=== PATIENT | male | born 1980 | race Caucasian/White ===

== ENCOUNTER 2024-02-09 10:09 | Emergency (ER) | payer MEDICAID, OTHER ==
[~2024-02-09] VITALS: Ht 185.4 cm; Wt 102.2 kg
[2024-02-09 10:30] VITALS: TEMP 98.8
[2024-02-09 10:33] LABS: Basophils # (auto) 0 10 ^3/uL (0-0.2); Basophils % (auto) 0.4 % (0.0-2.0); Eosinophils # (auto) 0 10 ^3/uL (0-0.8); Eosinophils % (auto) 0.2 % (0.0-7.0); Lymphocytes # (auto) 2.1 10 ^3/uL (0.4-5.4); Mean Corpuscular Volume 85.1 fL (80.0-100.0); Monocytes # (auto) 0.7 10 ^3/uL (0-1.3)
[2024-02-09 10:34] LABS: Hematocrit 51.9 % (41.0-53.0); Hemoglobin 17.7 g/dL (13.5-17.5); Lymphocytes % (auto) 34.1 % (10.0-50.0); Monocytes % (auto) 11.2 % (0.0-12.0); Neutrophils # (auto) 3.4 10 ^3/uL (1.6-8.6); Neutrophils % (auto) 54.1 % (37.0-80.0); Nucleated Red Blood Cells % 0.1 %; Platelet Count (auto) 244 10^3/uL (140-450); Red Cell Distribution Width 13.5 % (11.8-14.3); White Blood Cell 6.2 10^3/uL (4.4-10.8)
[2024-02-09] MEDS: ASPirin 81 mg TAB PO ONE (10:39)
[2024-02-09 10:49] LABS: Alanine Aminotransferase 19 U/L (7-40); Alkaline Phosphatase 68 U/L (46-116); Anion Gap 8 (5-15); Aspartate Aminotransferase 18 U/L (13-40); BUN/Creatinine Ratio 9.9 (10.0-20.0); Blood Urea Nitrogen 9 mg/dL (9-23); Calcium 9.9 mg/dL (8.7-10.4); Carbon Dioxide 27 mmol/L (20-31); Chloride 102 mmol/L (98-107); Glucose 176 mg/dL (74-106); Sodium 137 mmol/L (136-145)
[2024-02-09 10:50] LABS: Albumin 4.7 g/dL (3.2-4.8); Bilirubin, Total 0.6 mg/dL (0.2-1.0); Total Protein 7.9 g/dL (5.7-8.2)
[2024-02-09 12:46] VITALS: BP 120/82; PULSE 79; RESP 18; O2SAT 96
== END 2024-02-09 13:14 | disposition home or self-care (01) ==
LOC: ER 10:09
DX: R07.89 Other chest pain (principal); E11.9 Type 2 diabetes mellitus without complications; E78.5 Hyperlipidemia, unspecified
CPT/HCPCS: 36415; 71046; 80053; 84484; 85025; 93005

== ENCOUNTER 2024-02-11 04:55 | Emergency (ER) | payer MEDICAID ==
[~2024-02-11] VITALS: Ht 185.4 cm; Wt 101.5 kg
[2024-02-11] MEDS ORDERED: AMOX875T4 PO (05:41)
[2024-02-11] MEDS ORDERED: IBUP-1456 PO (05:41)
[2024-02-11] MEDS: cefTRIAXone SOD 1,000 MG VL IM ONE (05:46)
[2024-02-11] MEDS: KETOROLAC TROMETH 60MG/2ML VIAL IM ONE (05:47)
[2024-02-11 06:04] VITALS: BP 132/85; PULSE 99; RESP 20; TEMP 97; O2SAT 96
== END 2024-02-11 05:50 | disposition home or self-care (01) ==
LOC: ER 04:55
DX: H66.92 Otitis media, unspecified, left ear (principal); J06.9 Acute upper respiratory infection, unspecified; E11.9 Type 2 diabetes mellitus without complications
CPT/HCPCS: 96372; 99284; J0696; J1885

== ENCOUNTER 2024-02-13 21:46 | Emergency (ER) | payer MEDICAID ==
[~2024-02-13 21:46] MED LIST: AMOX875T4 PO; IBUP-1456 PO
[2024-02-13 22:13] VITALS: BP 109/70; PULSE 99; RESP 20; TEMP 98.1; O2SAT 98
[2024-02-13] MEDS: CIPROFLOXACIN HCL 500 MG TAB PO ONE ×2 (22:30→23:44)
[2024-02-13] MEDS: HYDROcodone-ACET 5/325MG TAB PO ONE (23:44)
[2024-02-13] MEDS ORDERED: CIPR-173 PO (23:57)
== END 2024-02-14 | disposition home or self-care (01) ==
LOC: ER 21:46
DX: H66.92 Otitis media, unspecified, left ear (principal); E11.9 Type 2 diabetes mellitus without complications; E78.5 Hyperlipidemia, unspecified; Z79.899 Other long term (current) drug therapy

== ENCOUNTER 2024-09-27 05:06 | Emergency (ER) | payer MEDICAID ==
[~2024-09-27] VITALS: Ht 188 cm; Wt 104.4 kg
[~2024-09-27 05:06] MED LIST changes: +CIPR-173 PO
--- NOTE | 2024-09-27 05:29 | ED.PDOC ---
Back pain HPI HPI Comments 44-year-old male presents to the ED with C/C of left hand injury s/p crushing left hand in car door. Noted subungual hematoma to middle and ring fingernail. Pt stated injury is just to mid-knuckle and fingertips. No edema or erythema noted. VSS. NKDA Chief Complaint: Upper Extremity Time Seen by MD: 05:13 Primary Care Provider: UNKNOWN Reviewed Notes: Nurses Notes, Medications, Allergies Allergies: Coded Allergies: NO KNOWN ALLERGIES (Unverified , 02/09/24) Home Meds Active Scripts Ciprofloxacin Hcl (Cipro) 500 Mg Tab, 500 MG PO BID for 7 Days, #14 TAB 0 Refill s Prov:MIHCELLE DUMONT MD 02/13/24 Ibuprofen (Ibuprofen) 800 Mg Tab, 1 TAB PO TID PRN, #30 TAB 0 Refills Prov:FRANKY SIN 02/11/24 Amoxicillin & Pot Clavulanate (Amoxicillin/Potassium Cla) 875 Mg Tab, 1 TAB PO BID for 7 Days, #14 TAB 0 Refills Prov:FRANKY SIN 02/11/24 Information Source: Patient Past Medical History PAST MEDICAL HISTORY: DM, High Lipids Surgical History: Denies all surgeries Family History Family History: Family hx of DM Social History Smoker: Non-Smoker Alcohol: Denies ETOH Use Drugs: Denies Drug Use Lives In: Home Constitutional: denies: chills, diaphoresis, fatigue, fever, malaise, sweats, weakness, others EENTM: denies: blurred vision, double vision, ear bleeding, ear discharge, ear drainage, ear pain, ear ringing, eye pain, eye redness, hearing loss, mouth pain, mouth swelling, nasal discharge, nose bleeding, nose congestion, nose pain, photophobia, tearing, throat pain, throat swelling, voice changes, others Respiratory: denies: cough, hemoptysis, orthopnea, SOB at rest, shortness of breath, SOB with excertion, stridor, wheezing, others Cardiovascular: denies: chest pain, dizzy spells, diaphoresis, Dyspnea on exertion, edema, irregular heart beat, left arm pain, lightheadedness, palpitations, PND, syncope, others Gastrointestinal: denies: abdomen distended, abdominal pain, blood streaked bowels, constipated, diarrhea, dysphagia, difficulty swallowing, hematemesis, melena, nausea, poor appetite, poor fluid intake, rectal bleeding, rectal pain, vomiting, others Genitourinary: denies: burning, dysuria, flank pain, frequency, hematuria, incontinence, penile discharge, penile sore, pain, testicle pain, testicle swelling, urgency, others Neurological: denies: dizziness, fainting, headache, left sided numbness, left sided weakness, numbness, paresthesia, pre-existing deficit, right sided numbness, right sided weakness, seizure, speech problems, tingling, tremors, weakness, others Musculoskeletal: denies: back pain, gout, joint pain, joint swelling, muscle pain, muscle stiffness, neck pain, others Integumetry: reports: bruises; denies: change in color, change in hair/nails, dryness, laceration, lesions, lumps, rash, wounds, others Allergic/Immunocompromised: denies: Difficulty Healing, Frequent Infections, Hives, Itching, others Hematologic/Lymphatic: denies: anemia, blood clots, easy bleeding, easy bruising, swollen glands, others Endocrine: denies: excessive hunger, excessive sweating, excessive thirst, excessive urination, flushing, intolerance to cold, intolerance to heat, unexplained weight gain, unexplained weight loss, others Psychiatric: denies: anxiety, bipolar disorder, depression, hopeless, panic disorder, schizophrenia, sleepless, suicidal, others Physical Exam General Appearance: No Apparent Distress, Normal HEENT: Pharynx Normal Neck: Full Range of Motion, Non-Tender Respiratory: Lungs Clear, No Respiratory Distress, Normal Breath Sounds Cardiovascular: No Murmur, Normal Peripheral Pulses, Regular Rate/Rhythm Breast Exam: Deferred Gastrointestinal: Non Tender, Soft Genitalia: Deferred Pelvic: Deferred Rectal: Deferred Extremities: Normal capillary refill, Normal inspection, Normal range of motion, Non-tender Musculoskeletal : Location: Left Extremity Location: Finger 3 (NOTED ECCHYMOSIS ON NAILBED TRACE EDEMA STRENGTH SENSORY MOTION INTACT CAP REFILL LESS THAN 3 SECONDS), Finger 4 (NOTED ECCHYMOSIS ON NAILBED TRACE EDEMA STRENGTH SENSORY MOTION INTACT CAP REFILL LESS THAN 3 SECONDS) Apperance: Normal Neurologic: Alert, call center nurse II-XII nml as Tested, No Motor Deficits, Normal Affect, Normal Mood, No Sensory Deficits Cerebellar Function: Normal Reflexes: Normal Skin: Dry, Normal Color, Warm Lymphatic: No Adenopathy Was a procedure done? Was a procedure done?: No Back Pain Differential Dx Differential Diagnosis: Fracture, Musculoskeletal Pain X-Ray, Labs, Meds, VS Vital Signs Date Time Temp Pulse Resp B/P (MAP) Pulse Ox O2 Delivery O2 Flow Rate FiO2 09/27/24 05:06 98.0 83 16 143/89 (107) 97 98.0 Time of 1ST Reevaluation: 05:26 Reevaluation 1ST: Unchanged Patient Education/Counseling: Diagnosis, Treatment, Prognosis, Need For Follow Up Family Education/Counseling: No Family Present Departure 1 Departure Time of Disposition: 05:57 Impression: Primary Impression: Fingertip contusion Qualified Codes: S60.00XA - Contusion of unspecified finger without damage to nail, initial encounter Disposition: HOME / SELF CARE / HOMELESS Condition: Stable Discharged With: Self Critical Care Note Critical Care Time?: No Stability Stability form required: DIAZ Culp Sep 27, 2024 05:29
--- NOTE | 2024-09-27 05:53 | DVH ---
CLINICAL INDICATION: Crushed hand injury TECHNIQUE: XY L HAND 2V XRAY Comparison: None FINDINGS/IMPRESSION: : There is no evidence of acute fracture or dislocation. Soft tissues are unremarkable.
[2024-09-27] MEDS: KETOROLAC TROMETH 60MG/2ML VIAL IM ONE (06:18)
[2024-09-27 06:23] VITALS: BP 131/86; RESP 19; TEMP 98
[2024-09-27 06:26] VITALS: PULSE 69; O2SAT 96
== END 2024-09-27 06:32 | disposition home or self-care (01) ==
LOC: ER 05:06
DX: S60.132A Contusion of left middle finger with damage to nail, initial encounter (principal); S60.142A Contusion of left ring finger with damage to nail, initial encounter; E11.9 Type 2 diabetes mellitus without complications; E78.5 Hyperlipidemia, unspecified; W23.0XXA Caught, crushed, jammed, or pinched between moving objects, initial encounter; Y93.89 Activity, other specified; Y92.89 Other specified places as the place of occurrence of the external cause; Y99.8 Other external cause status
CPT/HCPCS: 73120; 96372; 99283; J1885

== ENCOUNTER 2024-12-30 16:34 | Inpatient (IN) | payer MEDICAID ==
[~2024-12-30] VITALS: Ht 185.4 cm; Wt 105.2 kg
--- NOTE | 2024-12-30 19:16 | ED.PDOC ---
GI ASSESSMENT HPI Comments 44-year-old male presents to ER with complaints of flank pain x1 day. Patient reports that he woke up with 10/10 left-sided flank pain this morning. States he has had similar symptoms in the past related to a left-sided kidney stone. Reports he did take Advil for his pain without relief and presents to ER am bulatory on arrival, with steady gait, in no distress. Denies fever, body aches, chills, nausea/vomiting, abdominal/pelvic pain, changes in urination or any further symptoms/complaints Chief Complaint: Flank Pain Time Seen by MD: 18:14 Primary Care Provider: UNKNOWN Reviewed Notes: Nurses Notes, Medications, Allergies Allergies: Coded Allergies: NO KNOWN ALLERGIES (Unverified , 02/09/24) Home Meds Active Scripts Ciprofloxacin Hcl (Cipro) 500 Mg Tab, 500 MG PO BID for 7 Days, #14 TAB 0 Refills Prov:MICHELLE DUMONT MD 02/13/24 Ibuprofen (Ibuprofen) 800 Mg Tab, 1 TAB PO TID PRN, #30 TAB 0 Refills Prov:FRANKY SIN 02/11/24 Amoxicillin & Pot Clavulanate (Amoxicillin/Potassium Cla) 875 Mg Tab, 1 TAB PO BID for 7 Days, #14 TAB 0 Refills Prov:FRANKY SIN 02/11/24 Information Source: Patient Mode of Arrival: Ambulatory Past Medical History PAST MEDICAL HISTORY: DM, High Lipids, Kidney Stones Surgical History: Denies all surgeries Family History Family History: Family hx of DM Social History Smoker: Non-Smoker Alcohol: Denies ETOH Use Drugs: Denies Drug Use Lives In: Home Constitutional: denies: chills, diaphoresis, fatigue, fever, malaise, sweats, weakness, others EENTM: denies: blurred vision, double vision, ear bleeding, ear discharge, ear drainage, ear pain, ear ringing, eye pain, eye redness, hearing loss, mouth pain, mouth swelling, nasal discharge, nose bleeding, nose congestion, nose pain, photophobia, tearing, throat pain, throat swelling, voice changes, others Respiratory: denies: cough, hemoptysis, orthopnea, SOB at rest, shortness of breath, SOB with excertion, stridor, wheezing, others Cardiovascular: denies: chest pain, dizzy spells, diaphoresis, Dyspnea on exertion, edema, irregular heart beat, left arm pain, lightheadedness, palpitations, PND, syncope, others Gastrointestinal: denies: abdomen distended, abdominal pain, blood streaked bowels, constipated, diarrhea, dysphagia, difficulty swallowing, hematemesis, melena, nausea, poor appetite, poor fluid intake, rectal bleeding, rectal pain, vomiting, others Genitourinary: reports: others (As stated in HPI) Neurological: denies: dizziness, fainting, headache, left sided numbness, left sided weakness, numbness, paresthesia, pre-existing deficit, right sided numbness, right sided weakness, seizure, speech problems, tingling, tremors, weakness, others Musculoskeletal: denies: back pain, gout, joint pain, joint swelling, muscle pain, muscle stiffness, neck pain, others Integumetry: denies: bruises, change in color, change in hair/nails, dryness, laceration, lesions, lumps, rash, wounds, others Allergic/Immunocompromised: denies: Difficulty Healing, Frequent Infections, Hives, Itching, others Hematologic/Lymphatic: denies: anemia, blood clots, easy bleeding, easy bruising, swollen glands, others Endocrine: denies: excessive hunger, excessive sweating, excessive thirst, excessive urination, flushing, intolerance to cold, intolerance to heat, unexplained weight gain, unexplained weight loss, others Psychiatric: denies: anxiety, bipolar disorder, depression, hopeless, panic disorder, schizophrenia, sleepless, suicidal, others Physical Exam General Appearance: No Apparent Distress, Obese HEENT: PERRL/EOMI Neck: Full Range of Motion, Non-Tender, Normal Respiratory: Chest Non-Tender, Lungs Clear, No Accessory Muscle Use, No Respiratory Distress, Normal Breath Sounds Cardiovascular: No Murmur, No Gallop, Regular Rate/Rhythm Breast Exam: Deferred Gastrointestinal: No Organomegaly, Non Tender, No Pulsatile Mass, Normal Bowel Sounds, Soft Genitalia: Deferred Pelvic: Deferred Rectal: Deferred Extremities: Normal capillary refill, Normal range of motion Musculoskeletal : Extremity Location: Back (TTP to left flank noted. No CVA tenderness noted bilaterally) Neurologic: Alert, No Motor Deficits, Normal Affect, Normal Mood, No Sensory Deficits Cerebellar Function: Normal Reflexes: Normal Skin: Dry, Normal Color, Warm Peripheral Pulses: 2+ Radial (R), 2+ Radial (L), 2+ Brachial (R), 2+ Brachial (L) Lymphatic: No Adenopathy Was a procedure done? Was a procedure done?: No Sedation Sedation?: No GI differential Dx Differential Diagnosis: GI hemorrhage, Ischemic Bowel, Trauma intraabdominal, Urinary Obstruction, UTI X-Ray, Labs, Meds, VS Vital Signs Date Time Temp Pulse Resp B/P (MAP) Pulse Ox O2 Delivery O2 Flow Rate FiO2 12/30/24 22:20 98.5 80 18 145/90 (108) 98 98.5 12/30/24 16:38 98.0 87 15 147/97 96 98.0 Lab Test 12/30/24 19:53 12/30/24 19:22 Range/Units Urine Color Light-yellow Yellow Urine Clarity Clear Clear Urine pH 6.5 5.0-9.0 Urine Specific [place] 1.035 1.001-1.035 Urine Protein Negative Negative Urine Ketones Trace Negative Urine Blood 3+ H Negative /uL Urine Nitrite Negative Negative Urine Bilirubin Negative Negative Urine Urobilinogen Normal Negative mg/dL Urine Leukocyte Esterase Negative Negative /uL Urine RBC 429 0 - 3 /hpf Urine Microscopic WBC 2 0-3 /HPF Urine Squamous Epithelial Cells None seen <5 /hpf Urine Bacteria None seen None Seen /hpf Urine Glucose 4+ H Normal mg/dL White Blood Count 10.8 4.4-10.8 10^3/uL Red Blood Count 6.08 H 4.5-5.90 10^6/uL Hemoglobin 17.7 H 13.5-17.5 g/dL Hematocrit 51.8 41.0-53.0 % Mean Corpuscular Volume 85.2 80.0-100.0 fL Mean Corpuscular Hemoglobin 29.1 28.0-32.0 pg Mean Corpuscular Hemoglobin Concent 34.1 32.0-36.0 g/dL Red Cell Distribution Width 13.2 11.8-14.3 % Platelet Count 293 140-450 10^3/uL Mean Platelet Volume 7.5 6.9-10.8 fL Neutrophils (%) (Auto) 73.7 37.0-80.0 % Lymphocytes (%) (Auto) 18.2 10.0-50.0 % Monocytes (%) (Auto) 7.5 0.0-12.0 % Eosinophils (%) (Auto) 0.4 0.0-7.0 % Basophils (%) (Auto) 0.2 0.0-2.0 % Neutrophils # (Auto) 7.9 1.6-8.6 10 ^3/uL Lymphocytes # (Auto) 2.0 0.4-5.4 10 ^3/uL Monocytes # (Auto) 0.8 0-1.3 10 ^3/uL Eosinophils # (Auto) 0 0-0.8 10 ^3/uL Basophils # (Auto) 0 0-0.2 10 ^3/uL Nucleated Red Blood Cells 0.1 % Sodium Level 142 136-145 mmol/L Potassium Level 4.4 3.5-5.1 mmol/L Chloride Level 103 98-107 mmol/L Carbon Dioxide Level 29 20-31 mmol/L Anion Gap 10 5-15 Blood Urea Nitrogen 12 9-23 mg/dL Creatinine 1.15 0.700-1.30 mg/dL Glomerular Filtration Rate Calc 79 >90 mL/min BUN/Creatinine Ratio 10.4 10.0-20.0 Serum Glucose 171 H 74-106 mg/dL Calcium Level 9.9 8.7-10.4 mg/dL Total Bilirubin 0.5 0.2-1.0 mg/dL Aspartate Amino Transferase (AST) 15 13-40 U/L Alanine Aminotransferase (ALT) 16 7-40 U/L Alkaline Phosphatase 58 46-116 U/L Total Protein 8.2 5.7-8.2 g/dL Albumin 4.9 H 3.2-4.8 g/dL Current Medications Medications (Trade) Dose Ordered Sig/Bibi Route Start Time Stop Time Status Last Admin Ketorolac Tromethamine (Toradol Injection) 60 mg ONCE ONCE IM 12/30/24 19:15 12/30/24 19:16 DC 12/30/24 19:32 PATIENT: LIBBY LANGEDACCT: [id number]: [id number] : 1980 LOC: ER ROOM / BED: / AGE / SEX: 44 / M ADM STATUS: REG ER SERVICE [id number] ORDERING PHYSICIAN: FRANKY SIN PROCEDURE(s): ABPL - CT AB PEL WO CON-NO ORAL OR IV REASON: left flank pain ORDER NUMBER(s): [id number], ACCESSION NUMBER(s): [id number] Exam: CT CT AB PEL WO CON-NO ORAL OR IV History: left flank pain Comparison Study: None TECHNIQUE: Multidetector CT of the abdomen and pelvis without IV contrast. Axial, coronal and sagittal multiplanar reformats were obtained from the axial data set by the technologist. Radiation Dose Information: CT Dose: CTDI volume is 17.89 mGy. Dose-length product is 995.63 mGy*cm FINDINGS: Lung bases are clear. Mild cardiomegaly. Mild hepatomegaly. Otherwise, liver, spleen, gallbladder, pancreas and adrenal glands unremarkable. Punctate nonobstructing left renal calculi. Mild asymmetric left-sided perinephric fat stranding. 6 x 6 mm obstructing calculus of the left proximal ureter with associated more proximal left-sided hydronephrosis. The right kidney and ureter unremarkable. [id number] distention of the urinary bladder which is otherwise unremarkable. Stomach is unremarkable. Small bowel loops are unremarkable. Appendix is unremarkable. Large amount of fecal material within the ascending and transverse colons with small amount of fecal material within the remainder of the colon. Rectal wall thickening. No evidence of intraperitoneal free air or free fluid. No evidence of aortic aneurysm. Mild atherosclerotic calcification of the aorta. Shotty retroperitoneal and mesenteric lymph nodes. Small fat containing bilateral inguinal hernias with small fat containing umbilical hernia. Minimal body wall edema. no evidence of acute osseous abnormalities. IMPRESSION: 6 x 6 mm obstructing left proximal ureteral calculus with associated mild left hydronephrosis. Rectal wall thickening. Correlate for proctitis. Additional findings as above. ATED BY: AUTUMN COYLE DO DICTATED DATE/TIME: 12/30/242015 SIGNED BY: AUTUMN COYLE DO SIGNED DATE/TIME: 12/30/242015 CC: CBC reviewed without any significant abnormalities CMP reviewed without any significant abnormalities Urinalysis reviewed-urine blood 3+, urine nitrites negative, urine leukocyte esterase negative Toradol 60 mg IM ordered Hep-Lock IV ordered NS 1 L IV ordered Flomax 0.4 mg p.o. ordered Patient verbalized understanding and agreeable with current plan of care Patient admitted to hospitalist obstructing left-sided ureteral calculus/left hydronephrosis and need for pain control/urology consult Time of 1ST Reevaluation: 19:15 Reevaluation 1ST: N/A Patient Education/Counseling: Diagnosis, Treatment, Prognosis, Need For Follow Up Family Education/Counseling: No Family Present SEPSIS Sepsis Screen Date sepsis recognized/suspect: Dec 30, 2024 Time Sepsis recognized/suspect: 1638 Recent Procedure: No On Antibiotic Therapy: No Respiratory Rate >20: No Heart Rate >90: No Temp<36 C (96.8 F) or >38.3 C: No SBP <90 or MAP <65 mmHG: No New Acute Mental Status Change: No Is the patient on CPAP, BIPAP,: No Physician Orders Ct Ab Pel Wo Con-No Oral Or Iv (12/30/24 19:08) Heplock Iv (12/30/24 ) * Urology Consult (12/30/24 23:30) Basic Metabolic Panel (12/31/24 04:00) Admit (12/30/24 23:30) Hydrocodone-Acet 5/325mg Tab ([place] /32 (12/30/24 23:30) Temazepam (Restoril) (12/30/24 23:30) Ondansetron Hcl (Zofran) (12/30/24 23:30) Complete Blood Count (12/31/24 04:00) Condition: Stable (12/30/24 23:30) Acetaminophen Tablet (Tylenol Tablet) (12/30/24 23:30) Bedrest With Bathroom Privileg (12/30/24 23:30) Morphine Sulfate Injection (12/30/24 23:30) Regular Diet (12/31/24 Breakfast) Vital Signs Date Time Temp Pulse Resp B/P (MAP) Pulse Ox O2 Delivery O2 Flow Rate FiO2 12/30/24 22:20 98.5 80 18 145/90 (108) 98 98.5 12/30/24 16:38 98.0 87 15 147/97 96 98.0 Laboratory Tests Test 12/30/24 19:22 White Blood Count 10.8 10^3/uL (4.4-10.8) Medications Medications Dose Ordered Sig/Bibi Route Start Time Stop Time Status Last Admin Dose Admin Ketorolac Tromethamine 60 mg ONCE ONCE IM 12/30/24 19:15 12/30/24 19:16 DC 9/3/25 19:32 Departure 1 Departure Time of Disposition: 20:30 Impression: Primary Impression: Hydronephrosis, left Additional Impression: Ureteral calculus Disposition: ADMITTED INPATIENT Condition: Stable Critical Care Note Critical Care Time?: No Stability Stability form required: No Heart Score Heart Score: Heart Score Response (Comments) Value History N/A 0 EKG N/A 0 Age N/A 0 Risk Factors N/A 0 Troponin N/A 0 Total 0 FRANKY SIN Dec 30, 2024 19:15
[2024-12-30] MEDS: KETOROLAC TROMETH 60MG/2ML VIAL IM ONE (19:32)
[2024-12-30 19:49] LABS: Hematocrit 51.8 % (41.0-53.0); Hemoglobin 17.7 g/dL (13.5-17.5); Mean Corpuscular Hemoglobin 29.1 pg (28.0-32.0); Mean Corpuscular Volume 85.2 fL (80.0-100.0); Nucleated Red Blood Cells % 0.1 %
[2024-12-30 20:01] LABS: Alanine Aminotransferase 16 U/L (7-40); Alkaline Phosphatase 58 U/L (46-116); Calcium 9.9 mg/dL (8.7-10.4); Carbon Dioxide 29 mmol/L (20-31); Chloride 103 mmol/L (98-107)
[2024-12-30 20:02] LABS: Albumin 4.9 g/dL (3.2-4.8); Anion Gap 10 (5-15); BUN/Creatinine Ratio 10.4 (10.0-20.0); Bilirubin, Total 0.5 mg/dL (0.2-1.0); Blood Urea Nitrogen 12 mg/dL (9-23); Glucose 171 mg/dL (74-106); Potassium 4.4 mmol/L (3.5-5.1); Sodium 142 mmol/L (136-145); Total Protein 8.2 g/dL (5.7-8.2)
--- NOTE | 2024-12-30 20:18 | DVH ---
Exam: CT CT AB PEL WO CON-NO ORAL OR IV History: left flank pain Comparison Study: None TECHNIQUE: Multidetector CT of the abdomen and pelvis without IV contrast. Axial, coronal and sagitta l multiplanar reformats were obtained from the axial data set by the technologist. Radiation Dose Information: CT Dose: CTDI volume is 17.89 mGy. Dose-length product is 995.63 mGy*cm FINDINGS: Lung bases are clear. Mild cardiomegaly. Mild hepatomegaly. Otherwise, liver, spleen, gallbladder, pancreas and adrenal glands unremarkable. Punctate nonobstructing left renal calculi. Mild asymmetric left-sided perinephric fat stranding. 6 x 6 mm obstructing calculus of the left proximal ureter with associated more proximal left-sided hydro nephrosis. The right kidney and ureter unremarkable. [id number] distention of the urinary bladd er which is otherwise unremarkable. Stomach is unremarkable. Small bowel loops are unremarkable. Appendix is unremarkable. Large amount o f fecal material within the ascending and transverse colons with small amount of fecal material withi n the remainder of the colon. Rectal wall thickening. No evidence of intraperitoneal free air or free fluid. No evidence of aortic aneurysm. Mild atherosclerotic calcification of the aorta. Shotty retroperitoneal and mesenteric lymph nodes. Small fat containing bilateral inguinal hernias with small fat containing umbilical hernia. Minimal b bonnie wall edema. no evidence of acute osseous abnormalities. IMPRESSION: 6 x 6 mm obstructing left proximal ureteral calculus with associated mild left hydronephrosis. Rectal wall thickening. Correlate for proctitis. Additional findings as above.
[2024-12-30 21:07] LABS: Urine Protein, UAD Negative (Negative)
[2024-12-30] MEDS ORDERED: TEMAZEPAM 15 MG CAP PO PRN (23:30)
[2024-12-30] MEDS ORDERED: MORPHINE SULFATE INJ 2 MG/ml SYRG IV PRN (23:30)
[2024-12-30] MEDS ORDERED: ONDANSETRON HCL 4 MG/2 ML VIAL IV PRN (23:30)
[2024-12-30] MEDS ORDERED: ACETAMINOPHEN 325 MG TAB PO PRN (23:30)
--- NOTE | 2024-12-31 00:47 | DVHHP2 ---
History of Present Illness Reason for Visit: Flank pain History of Present Illness 44-year-old male presents for evaluation of flank pain. Patient endorses a one day history of sharp left-sided flank pain that is nonradiating with associated nausea. No dysuria or hematuria. Denies fever or chills. No other acute complaints reported. Past Medical History Dyslipidemia and kidney stones Past Surgical History Denies Family History Diabetes mellitus Smoke: No ALCOHOL: none Drugs: None Lives: with Family Review of Systems Review of Systems Review of systems are currently negative otherwise addressed in HPI. Allergies: Coded Allergies: NO KNOWN ALLERGIES (Unverified , 02/09/24) Medications Current Medications Medications Dose Ordered Sig/Bibi Route Start Time Stop Time Status Last Admin Dose Admin Acetaminophen/ Hydrocodone Bitart 1 tab Q4HP PRN PO 12/30/24 23:30 Temazepam 15 mg QHSP PRN PO 12/30/24 23:30 Ondansetron HCl 4 mg Q4HP PRN IV 12/30/24 23:30 Acetaminophen 650 mg Q6HP PRN PO 12/30/24 23:30 Morphine Sulfate 2 mg Q4HPRN PRN IV 12/30/24 23:30 Exam Vital Signs Vital Signs Date Time Temp Pulse Resp B/P (MAP) Pulse Ox O2 Delivery O2 Flow Rate FiO2 12/30/24 22:20 98.5 80 18 145/90 (108) 98 98.5 Exam Gen: 44-year-old male in mild distress Skin: Warm, dry, normal color and texture, no rash. HEENT: Normocephalic atraumatic, mucous membranes moist and pink. Neck: Cervical and supraclavicular nodes normal without enlargement, trachea is midline, thyroid gland is normal without masses. Pulmonary: Clear to auscultation and percussion bilaterally. Cardiac: Regular rate and rhythm. No murmur Abdomen: Soft, left CVA tenderness, nondistended, bowel sounds present all 4 q uadrants, no guarding, no rigidity, no organomegaly. Extremities: No cyanosis, clubbing, no edema Neuro: Cranial nerves II through XII grossly intact, normal affect and speech, no focal motor deficits. Labs/Xrays ORDERING PHYSICIAN: FRANKY SIN PROCEDURE(s): ABPL - CT AB PEL WO CON-NO ORAL OR IV REASON: left flank pain ORDER NUMBER(s): [id number], ACCESSION NUMBER(s): [id number] Exam: CT CT AB PEL WO CON-NO ORAL OR IV History: left flank pain Comparison Study: None TECHNIQUE: Multidetector CT of the abdomen and pelvis without IV contrast. Axial, coronal and sagittal multiplanar reformats were obtained from the axial data set by the technologist. Radiation Dose Information: CT Dose: CTDI volume is 17.89 mGy. Dose-length product is 995.63 mGy*cm FINDINGS: Lung bases are clear. Mild cardiomegaly. Mild hepatomegaly. Otherwise, liver, spleen, gallbladder, pancreas and adrenal glands unremarkable. Punctate nonobstructing left renal calculi. Mild asymmetric left-sided perinephric fat stranding. 6 x 6 mm obstructing calculus of the left proximal ureter with associated more proximal left-sided hydronephrosis. The right kidney and ureter unremarkable. [id number] distention of the urinary bladder which is otherwise unremarkable. Stomach is unremarkable. Small bowel loops are unremarkable. Appendix is unremarkable. Large amount of fecal material within the ascending and transverse colons with small amount of fecal material within the remainder of the colon. Rectal wall thickening. No evidence of intraperitoneal free air or free fluid. No evidence of aortic aneurysm. Mild atherosclerotic calcification of the aorta. Shotty retroperitoneal and mesenteric lymph nodes. Small fat containing bilateral inguinal hernias with small fat containing umbilical hernia. Minimal body wall edema. no evidence of acute osseous abnormalities. IMPRESSION: 6 x 6 mm obstructing left proximal ureteral calculus with associated mild left hydronephrosis. Rectal wall thickening. Correlate for proctitis. Additional findings as above. Labs Test 12/30/24 19:53 12/30/24 19:22 Range/Units Urine Color Light-yellow Yellow Urine Clarity Clear Clear Urine pH 6.5 5.0-9.0 Urine Specific [place] 1.035 1.001-1.035 Urine Protein Negative Negative Urine Ketones Trace Negative Urine Blood 3+ H Negative /uL Urine Nitrite Negative Negative Urine Bilirubin Negative Negative Urine Urobilinogen Normal Negative mg/dL Urine Leukocyte Esterase Negative Negative /uL Urine RBC 429 0 - 3 /hpf Urine Microscopic WBC 2 0-3 /HPF Urine Squamous Epithelial Cells None seen <5 /hpf Urine Bacteria None seen None Seen /hpf Urine Glucose 4+ H Normal mg/dL White Blood Count 10.8 4.4-10.8 10^3/uL Red Blood Count 6.08 H 4.5-5.90 10^6/uL Hemoglobin 17.7 H 13.5-17.5 g/dL Hematocrit 51.8 41.0-53.0 % Mean Corpuscular Volume 85.2 80.0-100.0 fL Mean Corpuscular Hemoglobin 29.1 28.0-32.0 pg Mean Corpuscular Hemoglobin Concent 34.1 32.0-36.0 g/dL Red Cell Distribution Width 13.2 11.8-14.3 % Platelet Count 293 140-450 10^3/uL Mean Platelet Volume 7.5 6.9-10.8 fL Neutrophils (%) (Auto) 73.7 37.0-80.0 % Lymphocytes (%) (Auto) 18.2 10.0-50.0 % Monocytes (%) (Auto) 7.5 0.0-12.0 % Eosinophils (%) (Auto) 0.4 0.0-7.0 % Basophils (%) (Auto) 0.2 0.0-2.0 % Neutrophils # (Auto) 7.9 1.6-8.6 10 ^3/uL Lymphocytes # (Auto) 2.0 0.4-5.4 10 ^3/uL Monocytes # (Auto) 0.8 0-1.3 10 ^3/uL Eosinophils # (Auto) 0 0-0.8 10 ^3/uL Basophils # (Auto) 0 0-0.2 10 ^3/uL Nucleated Red Blood Cells 0.1 % Sodium Level 142 136-145 mmol/L Potassium Level 4.4 3.5-5.1 mmol/L Chloride Level 103 98-107 mmol/L Carbon Dioxide Level 29 20-31 mmol/L Anion Gap 10 5-15 Blood Urea Nitrogen 12 9-23 mg/dL Creatinine 1.15 0.700-1.30 mg/dL Glomerular Filtration Rate Calc 79 >90 mL/min BUN/Creatinine Ratio 10.4 10.0-20.0 Serum Glucose 171 H 74-106 mg/dL Calcium Level 9.9 8.7-10.4 mg/dL Total Bilirubin 0.5 0.2-1.0 mg/dL Aspartate Amino Transferase (AST) 15 13-40 U/L Alanine Aminotransferase (ALT) 16 7-40 U/L Alkaline Phosphatase 58 46-116 U/L Total Protein 8.2 5.7-8.2 g/dL Albumin 4.9 H 3.2-4.8 g/dL SEPSIS Sepsis Screen Date sepsis recognized/suspect: Dec 30, 2024 Time Sepsis recognized/suspect: 1638 Recent Procedure: No On Antibiotic Therapy: No Respiratory Rate >20: No Heart Rate >90: No Temp<36 C (96.8 F) or >38.3 C: No SBP <90 or MAP <65 mmHG: No New Acute Mental Status Change: No Is the patient on CPAP, BIPAP,: No Physician Orders Ct Ab Pel Wo Con-No Oral Or Iv (12/30/24 19:08) Heplock Iv (12/30/24 ) * Urology Consult (12/30/24 23:30) Basic Metabolic Panel (12/31/24 04:00) Admit (12/30/24 23:30) Hydrocodone-Acet 5/325mg Tab ([place] /32 (12/30/24 23:30) Temazepam (Restoril) (12/30/24 23:30) Ondansetron Hcl (Zofran) (12/30/24 23:30) Complete Blood Count (12/31/24 04:00) Condition: Stable (12/30/24 23:30) Acetaminophen Tablet (Tylenol Tablet) (12/30/24 23:30) Bedrest With Bathroom Privileg (12/30/24 23:30) Morphine Sulfate Injection (12/30/24 23:30) Regular Diet (12/31/24 Breakfast) Vital Signs Date Time Temp Pulse Resp B/P (MAP) Pulse Ox O2 Delivery O2 Flow Rate FiO2 12/30/24 22:20 98.5 80 18 145/90 (108) 98 98.5 Laboratory Tests Test 12/30/24 19:22 White Blood Count 10.8 10^3/uL (4.4-10.8) Medications Medications Dose Ordered Sig/Bibi Route Start Time Stop Time Status Last Admin Dose Admin Ketorolac Tromethamine 60 mg ONCE ONCE IM 12/30/24 19:15 12/30/24 19:16 DC 12/30/24 19:32 60 MG Assessment/Plan Assessment/Plan Assessment Obstructive uropathy Left hydronephrosis Ureteral calculus Plan Admit the patient to [facility] to the hospitalist Urology consultation Pain management Continue treatment per orders. Plan discussed with: Patient My Orders Orders - CUONG FRANCO Procedure Category Date Status Time * Urology Consult CONS 12/30/24 Transmitted 23:30 Basic Metabolic Panel LAB 12/31/24 Logged 04:00 Admit ADMIT 12/30/24 Transmitted 23:30 Hydrocodone-Acet PHA 12/30/24 In Process 5/325mg Tab ([place] 23:30 Temazepam (Restoril) PHA 12/30/24 In Process 23:30 Ondansetron Hcl PHA 12/30/24 In Process (Zofran) 23:30 Complete Blood Count LAB 12/31/24 Logged 04:00 Condition: Stable OUMOU 12/30/24 In Process 23:30 Acetaminophen Tablet PHA 12/30/24 In Process (Tylenol Tablet) 23:30 Bedrest With Bathroom OUMOU 12/30/24 In Process Privileg 23:30 Morphine Sulfate PHA 12/30/24 In Process Injection 23:30 Regular Diet DIET 12/31/24 Transmitted Breakfast Date of Service: Dec 30, 2024 Billing Provider: CUONG FRANCO Common Visit Codes: [id number] INP/OBS CARE (MOD) CUONG FRANCO Dec 31, 2024 00:47
[2024-12-31] MEDS: HYDROcodone-ACET 5/325MG TAB PO PRN (02:53)
[2024-12-31] MEDS: TAMSULOSIN HYDROCHLORIDE 0.4 MG CAP PO ONE (02:53)
[2024-12-31 02:55] VITALS: PULSE 72; RESP 18
[2024-12-31 03:09] VITALS: BP 138/91; PULSE 69; RESP 18; TEMP 97.6; O2SAT 100
[2024-12-31 03:50] VITALS: BP 138/91; PULSE 69; RESP 18; TEMP 97.6; O2SAT 100
[2024-12-31] MEDS: SODIUM CHLORIDE 0.9% 1,000 ML IV ONE (03:56)
[2024-12-31] MEDS ORDERED: METF-372 PO (04:22)
[2024-12-31] MEDS ORDERED: EMPA1TAB PO (04:22)
[2024-12-31 05:38] LABS: Hematocrit 45.4 % (41.0-53.0); Hemoglobin 15.7 g/dL (13.5-17.5); Mean Corpuscular Hemoglobin 29.5 pg (28.0-32.0); Mean Corpuscular Volume 85.5 fL (80.0-100.0); Nucleated Red Blood Cells % 0.1 %
[2024-12-31 05:53] LABS: Anion Gap 10 (5-15); Carbon Dioxide 25 mmol/L (20-31); Chloride 104 mmol/L (98-107); Potassium 3.9 mmol/L (3.5-5.1); Sodium 139 mmol/L (136-145)
[2024-12-31 05:54] LABS: Calcium 8.7 mg/dL (8.7-10.4)
[2024-12-31 05:59] LABS: BUN/Creatinine Ratio 12.0 (10.0-20.0); Blood Urea Nitrogen 16 mg/dL (9-23)
[2024-12-31 06:03] LABS: Glucose 174 mg/dL (74-106)
[2024-12-31] MEDS ORDERED: KETOROLAC TROMETH 30 MG/ML 1ML VIAL IV PRN (08:15)
[2024-12-31 08:58] VITALS: BP 124/77; PULSE 72; RESP 18; TEMP 97.9; O2SAT 96
[2024-12-31] MEDS ORDERED: DEXTROSE (50%) 50ML SYRG IV PRN (09:00)
[2024-12-31 09:01] LABS: Magnesium 2.2 mg/dL (1.6-2.6)
--- NOTE | 2024-12-31 09:01 | DVHPNRES ---
Progress Note Date Seen: Dec 31, 2024 Resident Creating Document: ANGIE QUIGLEY Medical Necessity Reason Pt with a Central, PICC or Fol: No Objective vital signs Vital Sign Date Time Temp Pulse Resp B/P (MAP) Pulse Ox O2 Delivery O2 Flow Rate FiO2 12/31/24 03:50 97.6 69 18 138/91 (107) 100 97.6 12/31/24 02:55 Room Air* 0 21 medications Current Medications Medications Dose Ordered Sig/Bibi Route Start Time Stop Time Status Last Admin Dose Admin Acetaminophen/ Hydrocodone Bitart 1 tab Q4HP PRN PO 12/30/24 23:30 12/31/24 02:53 1 TAB Temazepam 15 mg QHSP PRN PO 12/30/24 23:30 Ondansetron HCl 4 mg Q4HP PRN IV 12/30/24 23:30 Acetaminophen 650 mg Q6HP PRN PO 12/30/24 23:30 Morphine Sulfate 2 mg Q4HPRN PRN IV 12/30/24 23:30 Tamsulosin HCl 0.4 mg QPM PO 12/31/24 18:00 UNV Sodium Chloride 1,000 ml @ 100 mls/hr Q10H IV 12/31/24 08:15 UNV Ketorolac Tromethamine 15 mg Q6HPRN PRN IV 12/31/24 08:15 01/03/25 22:00 UNV laboratory and microbiology Laboratory Tests 12/31/24 05:10 Test 12/31/24 05:10 Range/Units Serum Glucose 174 H 74-106 mg/dL My Orders My Orders Orders - ANGIE QUIGLEY Procedure Category Date Status Time Glucose Blood PHA 12/31/24 Verified (Accu-Chek Comfort 11:30 Mild Sliding Scale PHA 12/31/24 Verified 11:30 Dextrose 50% Syringe PHA 12/31/24 Verified 09:00 ANGIE QUIGLEY Dec 31, 2024 09:01
[2024-12-31 09:03] LABS: Cholesterol 158.0 mg/dL (< 200)
[2024-12-31 09:04] LABS: HDL Cholesterol 32.0 mg/dL (40-59); Triglycerides 250.0 mg/dL (< 150)
[2024-12-31] MEDS: SODIUM CHLORIDE 0.9% 1,000 ML IV SCH (09:17)
[2024-12-31] MEDS: InsuLIN REG 1unit/0.01ml Soln (100units/ml) SC SCH (11:30)
[2024-12-31 11:37] LABS: Amphetamine Screen, Urine Neg (NEGATIVE); Barbiturate Scree,Urine Neg (NEGATIVE); Benzodiazephine Screen, Urine Neg (NEGATIVE); Cannabinoid Screen, Urine Neg (NEGATIVE); Cocaine Screen, Urine Neg (NEGATIVE); Opiate Scree,Urine Neg (NEGATIVE); Phencyclidine Screen, Urine Neg (NEGATIVE)
[2024-12-31] MEDS: ACCU-CHEK COMFORT CURVE STRIP VI SCH (12:11)
--- NOTE | 2024-12-31 12:56 | DVHINCON2 ---
Date of service: Dec 31, 2024 Referring Physician hospitalist Reason for Consultation ureteral stone History of Present Illness History Source: Patient, RN Notes, MD Notes Exam Limitations: No limitations HPI 44-year-old male presents for evaluation of flank pain. Patient endorses a one day history of sharp left-sided flank pain that is nonradiating with associated nausea. No dysuria or hematuria. Denies fever or chills. No other acute complaints reported. Home Meds Reported Medications Metformin Hydrochloride (Metformin Hcl) 1,000 Mg Tab, 1000 MG PO DAILY, TAB 12/31/24 Empagliflozin (Jardiance) 10 Mg Tab, 10 MG PO DAILY, TAB 12/31/24 Past Medical History Patient Family History: Diabetes mellitus G8 FATHER Hypertension G8 MOTHER Review of Systems Genitourinary: Pain H&P Exam Vital Signs Vital Signs Date Time Temp Pulse Resp B/P (MAP) Pulse Ox O2 Delivery O2 Flow Rate FiO2 12/31/24 08:58 97.9 72 18 124/77 (93) 96 97.9 12/31/24 02:55 Room Air* 0 21 General Appeara: Well developed, Well nourished, Normal Appearance Neuro/Mental St: Alert, Oriented Appearance: Appropriate appearance, Appropriate insight Eye contact/ Speech: Cooperative, Good eye contact, Normal speech Skin Exam: Normal inspection, Normal color, Warm/dry Labs/Xrays [place] [id number] Ph: [phone] DIAGNOSTIC IMAGING Diagnostic Imaging Report : [id number] Signed PATIENT: ADONIS LANGE ACCT: [id number] UNIT: [id number] : 1980 LOC: ER ROOM / BED: / AGE / SEX: 44 / M ADM STATUS: REG ER SERVICE 1908 ORDERING PHYSICIAN: FRANKY SIN PROCEDURE(s): ABPL - CT AB PEL WO CON-NO ORAL OR IV REASON: left flank pain ORDER NUMBER(s): [id number], ACCESSION NUMBER(s): [id number] Exam: CT CT AB PEL WO CON-NO ORAL OR IV History: left flank pain Comparison Study: None TECHNIQUE: Multidetector CT of the abdomen and pelvis without IV contrast. Axial, coronal and sagittal multiplanar reformats were obtained from the axial data set by the technologist. Radiation Dose Information: CT Dose: CTDI volume is 17.89 mGy. Dose-length product is 995.63 mGy*cm FINDINGS: Lung bases are clear. Mild cardiomegaly. Mild hepatomegaly. Otherwise, liver, spleen, gallbladder, pancreas and adrenal glands unremarkable. Punctate nonobstructing left renal calculi. Mild asymmetric left-sided perinephric fat stranding. 6 x 6 mm obstructing calculus of the left proximal ureter with associated more proximal left-sided hydronephrosis. The right kidney and ureter unremarkable. [id number] distention of the urinary bladder which is otherwise unremarkable. Stomach is unremarkable. Small bowel loops are unremarkable. Appendix is unremarkable. Large amount of fecal material within the ascending and transverse colons with small amount of fecal material within the remainder of the colon. Rectal wall thickening. No evidence of intraperitoneal free air or free fluid. No evidence of aortic aneurysm. Mild atherosclerotic calcification of the aorta. Shotty retroperitoneal and mesenteric lymph nodes. Small fat containing bilateral inguinal hernias with small fat containing umbilical hernia. Minimal body wall edema. no evidence of acute osseous abnormalities. IMPRESSION: 6 x 6 mm obstructing left proximal ureteral calculus with associated mild left hydronephrosis. Rectal wall thickening. Correlate for proctitis. Additional findings as above. ATED BY: AUTUMN COYLE DO DICTATED DATE/TIME: 12/30/242015 SIGNED BY: AUTUMN COYLE DO SIGNED DATE/TIME: 12/30/242015 CC: Labs Test 12/31/24 11:39 12/31/24 05:10 12/30/24 19:53 12/30/24 19:22 Range/Units POC Glucose 192 H 70-106 mg/dl White Blood Count 7.8 # 4.4-10.8 10^3/uL Red Blood Count 5.30 4.5-5.90 10^6/uL Hemoglobin 15.7 13.5-17.5 g/dL Hematocrit 45.4 # 41.0-53.0 % Mean Corpuscular Volume 85.5 80.0-100.0 fL Mean Corpuscular Hemoglobin 29.5 28.0-32.0 pg Mean Corpuscular Hemoglobin Concent 34.5 32.0-36.0 g/dL Red Cell Distribution Width 13.3 11.8-14.3 % Platelet Count 243 140-450 10^3/uL Mean Platelet Volume 7.5 6.9-10.8 fL Neutrophils (%) (Auto) 56.3 37.0-80.0 % Lymphocytes (%) (Auto) 32.0 10.0-50.0 % Monocytes (%) (Auto) 10.6 0.0-12.0 % Eosinophils (%) (Auto) 0.9 0.0-7.0 % Basophils (%) (Auto) 0.2 0.0-2.0 % Neutrophils # (Auto) 4.4 1.6-8.6 10 ^3/uL Lymphocytes # (Auto) 2.5 0.4-5.4 10 ^3/uL Monocytes # (Auto) 0.8 0-1.3 10 ^3/uL Eosinophils # (Auto) 0.1 0-0.8 10 ^3/uL Basophils # (Auto) 0 0-0.2 10 ^3/uL Nucleated Red Blood Cells 0.1 % Sodium Level 139 136-145 mmol/L Potassium Level 3.9 3.5-5.1 mmol/L Chloride Level 104 98-107 mmol/L Carbon Dioxide Level 25 20-31 mmol/L Anion Gap 10 5-15 Blood Urea Nitrogen 16 9-23 mg/dL Creatinine 1.33 H 0.700-1.30 mg/dL Glomerular Filtration Rate Calc 67 >90 mL/min BUN/Creatinine Ratio 12.0 10.0-20.0 Serum Glucose 174 H 74-106 mg/dL Hemoglobin A1c 7.2 H <5.7 % A1C Calcium Level 8.7 8.7-10.4 mg/dL Phosphorus Level 4.7 2.4-5.1 mg/dL Magnesium Level 2.2 1.6-2.6 mg/dL Triglycerides Level 250 H < 150 mg/dL Cholesterol Level 158 < 200 mg/dL LDL Cholesterol 100 H < 100 mg/dL HDL Cholesterol 32 L 40-59 mg/dL Vitamin B12 Level 429 211-911 pg/mL Vitamin D 25-Hydroxy 33.8 30.0-100 ng/mL Thyroid Stimulating Hormone (TSH) 1.14 0.55-4.78 uIU/mL Urine Color Light-yellow Yellow Urine Clarity Clear Clear Urine pH 6.5 5.0-9.0 Urine Specific [place] 1.035 1.001-1.035 Urine Protein Negative Negative Urine Ketones Trace Negative Urine Blood 3+ H Negative /uL Urine Nitrite Negative Negative Urine Bilirubin Negative Negative Urine Urobilinogen Normal Negative mg/dL Urine Leukocyte Esterase Negative Negative /uL Urine RBC 429 0 - 3 /hpf Urine Microscopic WBC 2 0-3 /HPF Urine Squamous Epithelial Cells None seen <5 /hpf Urine Bacteria None seen None Seen /hpf Urine Glucose 4+ H Normal mg/dL Urine Opiates Screen Neg NEGATIVE Urine Fentanyl Screen Neg NEGATIVE Urine Barbiturates Screen Neg NEGATIVE Urine Phencyclidine Screen Neg NEGATIVE Urine Amphetamines Screen Neg NEGATIVE Urine Benzodiazepines Screen Neg NEGATIVE Urine Cocaine Screen Neg NEGATIVE Urine Cannabinoids Screen Neg NEGATIVE Total Bilirubin 0.5 0.2-1.0 mg/dL Aspartate Amino Transferase (AST) 15 13-40 U/L Alanine Aminotransferase (ALT) 16 7-40 U/L Alkaline Phosphatase 58 46-116 U/L Total Protein 8.2 5.7-8.2 g/dL Albumin 4.9 H 3.2-4.8 g/dL Assessment/Plan Problem List: (1) Ureteral calculus (2) Hydronephrosis, left Plan left PCN placement via IR service outpt lithotripsy TBA pain meds prn continue expulsive measures Plan discussed with: Patient, Other LOUANN PINTO NP Dec 31, 2024 12:56
[2024-12-31 13:00] VITALS: BP 121/79; PULSE 79; RESP 16; TEMP 98.1; O2SAT 97
--- NOTE | 2024-12-31 13:01 | DVH ---
Indication: r/o ureteric stone. Technique: XY KUB ABDOMEN SINGLE VIEWXY Comparison: None FINDINGS/IMPRESSION: Moderate to large volume stool within the colon. No evidence for free intraperitoneal air. No patholo gical calcifications.
[2024-12-31 13:45] LABS: INR 0.97 (0.9-1.15); Prothrombin Time 10.3 sec (9.3-11.8)
--- NOTE | 2024-12-31 16:31 | DVHDSRES ---
Discharge Summary Date of Admission Resident Creating Document: ANGIE QUIGLEY RESIDENT Dec 30, 2024 at 23:30 Date of Discharge: Dec 31, 2024 Labs/Diagnostic Data: Laboratory Results Test 12/31/24 13:21 12/31/24 11:39 12/31/24 05:10 12/30/24 19:53 Prothrombin Time 10.3 sec (9.3-11.8) Prothrombin Time INR 0.97 (0.9-1.15) POC Glucose 192 mg/dl (70-106) White Blood Count 7.8 10^3/uL (4.4-10.8) Red Blood Count 5.30 10^6/uL (4.5-5.90) Hemoglobin 15.7 g/dL (13.5-17.5) Hematocrit 45.4 % (41.0-53.0) Mean Corpuscular Volume 85.5 fL (80.0-100.0) Mean Corpuscular Hemoglobin 29.5 pg (28.0-32.0) Mean Corpuscular Hemoglobin Concent 34.5 g/dL (32.0-36.0) Red Cell Distribution Width 13.3 % (11.8-14.3) Platelet Count 243 10^3/uL (140-450) Mean Platelet Volume 7.5 fL (6.9-10.8) Neutrophils (%) (Auto) 56.3 % (37.0-80.0) Lymphocytes (%) (Auto) 32.0 % (10.0-50.0) Monocytes (%) (Auto) 10.6 % (0.0-12.0) Eosinophils (%) (Auto) 0.9 % (0.0-7.0) Basophils (%) (Auto) 0.2 % (0.0-2.0) Neutrophils # (Auto) 4.4 10 ^3/uL (1.6-8.6) Lymphocytes # (Auto) 2.5 10 ^3/uL (0.4-5.4) Monocytes # (Auto) 0.8 10 ^3/uL (0-1.3) Eosinophils # (Auto) 0.1 10 ^3/uL (0-0.8) Basophils # (Auto) 0 10 ^3/uL (0-0.2) Nucleated Red Blood Cells 0.1 % Sodium Level 139 mmol/L (136-145) Potassium Level 3.9 mmol/L (3.5-5.1) Chloride Level 104 mmol/L (98-107) Carbon Dioxide Level 25 mmol/L (20-31) Anion Gap 10 (5-15) Blood Urea Nitrogen 16 mg/dL (9-23) Creatinine 1.33 mg/dL (0.700-1.30) Glomerular Filtration Rate Calc 67 mL/min (>90) BUN/Creatinine Ratio 12.0 (10.0-20.0) Serum Glucose 174 mg/dL (74-106) Hemoglobin A1c 7.2 % A1C (<5.7) Calcium Level 8.7 mg/dL (8.7-10.4) Phosphorus Level 4.7 mg/dL (2.4-5.1) Magnesium Level 2.2 mg/dL (1.6-2.6) Triglycerides Level 250 mg/dL (< 150) Cholesterol Level 158 mg/dL (< 200) LDL Cholesterol 100 mg/dL (< 100) HDL Cholesterol 32 mg/dL (40-59) Vitamin B12 Level 429 pg/mL (211-911) Vitamin D 25-Hydroxy 33.8 ng/mL (30.0-100) Thyroid Stimulating Hormone (TSH) 1.14 uIU/mL (0.55-4.78) Urine Color Light-yellow (Yellow) Urine Clarity Clear (Clear) Urine pH 6.5 (5.0-9.0) Urine Specific [place] 1.035 (1.001-1.035) Urine Protein Negative (Negative) Urine Ketones Trace (Negative) Urine Blood 3+ /uL (Negative) Urine Nitrite Negative (Negative) Urine Bilirubin Negative (Negative) Urine Urobilinogen Normal mg/dL (Negative) Urine Leukocyte Esterase Negative /uL (Negative) Urine RBC 429 /hpf (0 - 3) Urine Microscopic WBC 2 /HPF (0-3) Urine Squamous Epithelial Cells None seen /hpf (<5) Urine Bacteria None seen /hpf (None Seen) Urine Glucose 4+ mg/dL (Normal) Urine Opiates Screen Neg (NEGATIVE) Urine Fentanyl Screen Neg (NEGATIVE) Urine Barbiturates Screen Neg (NEGATIVE) Urine Phencyclidine Screen Neg (NEGATIVE) Urine Amphetamines Screen Neg (NEGATIVE) Urine Benzodiazepines Screen Neg (NEGATIVE) Urine Cocaine Screen Neg (NEGATIVE) Urine Cannabinoids Screen Neg (NEGATIVE) Test 12/30/24 19:22 Total Bilirubin 0.5 mg/dL (0.2-1.0) Aspartate Amino Transferase (AST) 15 U/L (13-40) Alanine Aminotransferase (ALT) 16 U/L (7-40) Alkaline Phosphatase 58 U/L (46-116) Total Protein 8.2 g/dL (5.7-8.2) Albumin 4.9 g/dL (3.2-4.8) Other Laboratory Tests 12/31/24 05:10 Brief Hx & Hospital Course: This is a 44-year-old male who presents to ER with the complain of left flank pain which is started yesterday morning suddenly after awake up from sleep,10/10 intensity, localized, no radiation, no aggravating or relieving factors. Patient took Motrin and helps a little bit but around 12:00 p.m. intensity of pain increases and came to ER. He also stated having dark-colored urine for few days but denies any dysuria, fever, suprapubic pain. Patient having similar symptoms 5 years back and treated conservatively and passes stone in urine. Patient denies any dietary habit changes or any new medication started recently. Past Medical History: Dyslipidemia and kidney stones, type 2 diabetes mellitus Past Surgical History: Denies Family History: hypertension- parents Smoke: No ALCOHOL: none Drugs: None Lives: with Family Home Meds: Metformin Hydrochloride (Metformin Hcl) 1,000 Mg , Empagliflozin (Jardiance) 10 Mg Tab PCP: [facility]. [facility] course: Obstructive uropathy evidenced on CT abdomen which described 6x 6 mm obstructing left proximal ureteral calculus with mild left hydronephrosis. Patient initially treated medically with pain management, IV fluids and tamsulosin, relieving symptoms completely. Urology consulted and recommended left percutaneous nephrostomy tube placement via IR service, eventual outpatient lithotripsy, pain management. Patient left AMA and signed refusal of treatment form. Patient is AAOx 4, having capacity, demonstrates understanding of all risks including worsening risk of morbidity and mortality, which were explained in layman's terms, as indicated by ability to perform- teach back, ample time given for questions and concerns which were answered /addressed. Patient was counseled extensively and was encouraged to return to ER if any alarming symptoms presents. Physical examination Patient lying in bed, in no acute distress General: Lucid, afebrile, mucosae are moist Cardiovascular: Normal S1 and S2. No murmurs, gallops or rubs Respiratory: Normal ventilation mechanics. Clear lung sounds on auscultation Abdomen: Soft, nontender, no organomegaly, normal bowel sounds MSK/skin: Mobilizes 4 limbs. Skin is dry and warm : Negative costovertebral tenderness Neurological: Oriented in 3 spheres. No motor no sensitive deficits. Pupils are isocoric and reactive Operations or Procedures ORDERING PHYSICIAN: FRANKY SIN PROCEDURE(s): ABPL - CT AB PEL WO CON-NO ORAL OR IV REASON: left flank pain ORDER NUMBER(s): [id number], ACCESSION NUMBER(s): [id number] Exam: CT CT AB PEL WO CON-NO ORAL OR IV History: left flank pain Comparison Study: None TECHNIQUE: Multidetector CT of the abdomen and pelvis without IV contrast. Axial, coronal and sagittal multiplanar reformats were obtained from the axial data set by the technologist. Radiation Dose Information: CT Dose: CTDI volume is 17.89 mGy. Dose-length product is 995.63 mGy*cm FINDINGS: Lung bases are clear. Mild cardiomegaly. Mild hepatomegaly. Otherwise, liver, spleen, gallbladder, pancreas and adrenal glands unremarkable. Punctate nonobstructing left renal calculi. Mild asymmetric left-sided perinephric fat stranding. 6 x 6 mm obstructing calculus of the left proximal ureter with associated more proximal left-sided hydronephrosis. The right kidney and ureter unremarkable. [id number]-[id number] distention of the urinary bladder which is otherwise unremarkable. Stomach is unremarkable. Small bowel loops are unremarkable. Appendix is unremarkable. Large amount of fecal material within the ascending and transverse colons with small amount of fecal material within the remainder of the colon. Rectal wall thickening. No evidence of intraperitoneal free air or free fluid. No evidence of aortic aneurysm. Mild atherosclerotic calcification of the aorta. Shotty retroperitoneal and mesenteric lymph nodes. Small fat containing bilateral inguinal hernias with small fat containing umbilical hernia. Minimal body wall edema. no evidence of acute osseous abnormalities. IMPRESSION: 6 x 6 mm obstructing left proximal ureteral calculus with associated mild left hydronephrosis. Rectal wall thickening. Correlate for proctitis. Additional findings as above. ATED BY: AUTUMN COYLE DO DICTATED DATE/TIME: 12/30/242015 ORDERING PHYSICIAN: ANGIE QUIGLEY PROCEDURE(s): KUB - KUB ABDOMEN SINGLE VIEW REASON: r/o ureteric stone. ORDER NUMBER(s): [id number], ACCESSION NUMBER(s): [id number] Indication: r/o ureteric stone. Technique: XY KUB ABDOMEN SINGLE VIEWXY Comparison: None FINDINGS/IMPRESSION: Moderate to large volume stool within the colon. No evidence for free intraperitoneal air. No pathological calcifications. ATED BY: MAYA PEÑALOZA MD DICTATED DATE/TIME: 12/31/24 1301 Condition at Discharge: Undetermined Final Diagnosis/Problems List Obstructive uropathy Left hydronephrosis Ureteral calculus Type 2 diabetes mellitus Hyperlipidemia Hematuria due to ureteric stone. Discharge Disposition: AMA SNF Discharge Will this Physician continue t: No Discharge Instruct/Medications Follow Up/Referral: Follow up with PCP with in 2 week Follow up with Urology with in 1 week. Scheduled Empagliflozin (Jardiance), 10 MG PO DAILY, (Reported) Metformin Hydrochloride (Metformin Hcl), 1,000 MG PO DAILY, (Reported) Discharge Statement: "Patient was advised to return to the ER or call 911 if any headaches, dizziness, shortness of breath, chest pain, abdominal pain, bleeding, fevers, or worsening of medical condition. Patient was counseled about treatment plan, medications, possible side effects, patientverbalized understanding. All questions were answered to the best of my ability. This discharge took greater then 30 minutes in planning, reviewing documentation, counseling the patient, and discussing with other team members." ASSESSMENT ASSESSMENT Assessment ANGIE QUIGLEY RESIDENT Dec 31, 2024 16:31 LIANNE MANCILLA RESIDENT Jan 02, 2025 07:02
[2024-12-31] MEDS ORDERED: TAMSULOSIN HYDROCHLORIDE 0.4 MG CAP PO SCH (18:00)
== END 2024-12-31 15:46 | disposition left against medical advice (07) | DRG 465 ==
LOC: ER 16:34 → OVERFLOW 23:30
PROVIDERS: ADMIT Student in an Organized Health Care Education/Training Program; ATTEND Student in an Organized Health Care Education/Training Program
DX: N13.2 Hydronephrosis with renal and ureteral calculous obstruction (principal); E11.9 Type 2 diabetes mellitus without complications; E78.5 Hyperlipidemia, unspecified; E66.9 Obesity, unspecified; Z53.29 Procedure and treatment not carried out because of patient's decision for other reasons; Z79.2 Long term (current) use of antibiotics; Z79.899 Other long term (current) drug therapy; Z79.1 Long term (current) use of non-steroidal anti-inflammatories (NSAID); Z83.3 Family history of diabetes mellitus; Z79.84 Long term (current) use of oral hypoglycemic drugs; Z82.49 Family history of ischemic heart disease and other diseases of the circulatory system; Z87.442 Personal history of urinary calculi; Z68.30 Body mass index [BMI] 30.0-30.9, adult
CPT/HCPCS: 36415; 74018; 74176; 80048; 80053; 80061; 80307; 81001; 82306; 82607; 82962; 83036; 83735; 84100; 84443; 85025; 85610; 96372; G0378; J1815; J1885